=== PATIENT | female | born 1975 | race Caucasian/White ===

== ENCOUNTER 2020-04-06 18:13 | Inpatient (IN) ==
[2020-04-06 22:04] LABS: Hematocrit 37 % (35-47); Hemoglobin 11.3 g/dL (12.0-16.0); Mean Corpuscular HGB Conc 31 g/dL (31-36); Mean Corpuscular Hemoglobin 20 pg (27-31); Mean Corpuscular Volume 65 fL (80-97); Mean Platelet Volume 8.2 fL (7.4-10.4); Platelet Count 498 10^3/uL (150-450); Red Blood Count 5.65 10^6 /uL (3.70-4.87); Red Cell Distribution Width 18 % (10-15); White Blood Count 14.3 10^3/uL (3.5-10.8)
[2020-04-06 22:05] LABS: Urine Appearance Cloudy; Urine Bilirubin Negative (Negative); Urine Blood Negative (Negative); Urine Color Amber; Urine Glucose Negative (Negative); Urine Ketones 1+ (Negative); Urine Nitrite Negative (Negative); Urine Protein 1+(30 mg/dL) (Negative); Urine Specific Gravity 1.031 (1.010-1.030); Urine Urobilinogen Negative (Negative)
[2020-04-06 22:07] LABS: Urine Bacteria 1+ (Absent); Urine Red Blood Cell 2+(6-10/hpf) (Absent); Urine Squamous Epithelial Cell Present (Absent); Urine White Blood Cell Trace(0-5/hpf) (Absent)
[2020-04-06 22:14] LABS: ALT 24 U/L (7-52); Albumin 4.3 g/dL (3.2-5.2); Albumin/Globulin Ratio 1.3 (1-3); Alkaline Phosphatase 120 U/L (34-104); BUN/Creatinine Ratio 11.8 (8-20); Blood Urea Nitrogen 9 mg/dL (6-24); C Reactive Protein 42.79 mg/L (<8.01); CO2 Carbon Dioxide 21 mmol/L (22-32); Calcium 9.4 mg/dL (8.6-10.3); Chloride 106 mmol/L (101-111); EGFR Non-African American 83.5 (>60); Globulin 3.2 g/dL (2-4); Glucose 78 mg/dL (70-100); Lipase 13 U/L (11.0-82.0); Sodium 139 mmol/L (135-145); Total Protein 7.5 g/dL (6.4-8.9)
[2020-04-06 22:16] LABS: Anion Gap 12 mmol/L (2-11)
[2020-04-06 22:20] LABS: HCG Pregnancy < 0.60 mIU/mL
[2020-04-06 22:27] LABS: Microcytosis 1+
[2020-04-06 22:28] LABS: ABS Basophils 0.1 10^3/ul (0-0.2); ABS Eosinophils 0.2 10^3/ul (0-0.6); ABS Lymphocytes 2.8 10^3/ul (1.0-4.8); ABS Monocytes 0.8 10^3/ul (0-0.8); ABS Neutrophils 10.4 10^3/ul (1.5-7.7); Eosinophil % 1.2 %; Lymphocyte % 19.8 %
[2020-04-06] MEDS ORDERED: NS 0.9% 1000 ml BAG 1,000 ML IV SCH (22:45)
[2020-04-06] MEDS ORDERED: Piperacillin/Tazobac ADVAN 3.375 GM in NS 0.9% 100 ml BAG 100 ML IV ONE (22:50)
[2020-04-06] MEDS ORDERED: Ondansetron 4 mg VIAL 2 MG/ML 2 ml VIAL IV PRN (22:50)
[2020-04-06] MEDS ORDERED: HYDROmorphone 1 MG/1 ML SYRINGE IV SLOW PU PRN (22:53)
[2020-04-06] MEDS ORDERED: metroNIDAZOLE IV 500 MG/100ML 500 MG/100 ML BAG IVPB ONE (22:58)
[2020-04-06] MEDS ORDERED: Ciprofloxacin 400mg IVPREMIX 400 MG/200 ML BAG IVPB ONE (22:58)
[2020-04-06] MEDS ORDERED: ETH ESTRADIOL VAGINAL SCH (23:00)
[2020-04-06] MEDS ORDERED: ETONOGESTREL VAGINAL SCH (23:00)
[2020-04-06] MEDS ORDERED: Zosyn per Pharmacy NOTE FOLLOW UP SCH (23:00)
[2020-04-06 23:31] LABS: Potassium Redraw 3.2 mmol/L (3.5-5.0)
[2020-04-06] MEDS ORDERED: Potassium Chloride LIQUID 20 MEQ/15 ML LIQUID PO ONE (23:40)
[2020-04-06] MEDS ORDERED: Potassium Chlor 10 meq TAB PO ONE (23:50)
[2020-04-07] MEDS ORDERED: Potassium Chloride LIQUID 20 MEQ/15 ML LIQUID PO ONE (02:00)
[2020-04-07] MEDS: Heparin 5000 UNITS/ML 1 mL VIAL SUBCUT SCH ×2 (02:38→05:24)
[2020-04-07] MEDS ORDERED: ZOSYN 3.375 GM Q8H per EXTENDED INFUSION IV SCH (04:00)
[2020-04-07 06:13] LABS: ABS Basophils 0.1 10^3/ul (0-0.2); ABS Eosinophils 0.3 10^3/ul (0-0.6); ABS Lymphocytes 2.4 10^3/ul (1.0-4.8); ABS Monocytes 0.8 10^3/ul (0-0.8); ABS Neutrophils 5.8 10^3/ul (1.5-7.7); Eosinophil % 3.2 %; Hematocrit 31 % (35-47); Hemoglobin 9.6 g/dL (12.0-16.0); Lymphocyte % 25.6 %; Mean Corpuscular HGB Conc 31 g/dL (31-36); Mean Corpuscular Hemoglobin 20 pg (27-31); Mean Corpuscular Volume 65 fL (80-97); Mean Platelet Volume 7.9 fL (7.4-10.4); Platelet Count 438 10^3/uL (150-450); Red Blood Count 4.78 10^6 /uL (3.70-4.87); Red Cell Distribution Width 18 % (10-15); White Blood Count 9.3 10^3/uL (3.5-10.8)
[2020-04-07 06:31] LABS: Albumin 3.3 g/dL (3.2-5.2); Albumin/Globulin Ratio 1.3 (1-3); BUN/Creatinine Ratio 13.2 (8-20); Calcium 8.2 mg/dL (8.6-10.3); EGFR Non-African American 83.5 (>60); Globulin 2.5 g/dL (2-4); Potassium 3.6 mmol/L (3.5-5.0); Total Bilirubin 0.4 mg/dL (0.2-1.0); Total Protein 5.8 g/dL (6.4-8.9)
[2020-04-07] MEDS ORDERED: Bupivacaine 0.25% SDV 30 ML ONE (08:50)
[2020-04-07] MEDS ORDERED: Famotidine IV 10 MG/ML 2 ml VIAL (20 mg) IV SLOW PU SCH (09:00)
[2020-04-07] MEDS ORDERED: oxyCODONE/Acetamin 5/325 mg TAB PO PRN (11:55)
[2020-04-07] MEDS ORDERED: Naloxone 0.4 mg VIAL 0.4 mg/ml 1 ml VIAL IV PRN (11:55)
[2020-04-07] MEDS ORDERED: DiMENhydriNATE IV 50 mg/ml 1 ml VIAL IV PUSH PRN (11:55)
[2020-04-07] MEDS ORDERED: Ondansetron 4 mg VIAL 2 MG/ML 2 ml VIAL IV PRN (11:55)
[2020-04-07] MEDS ORDERED: fentaNYL 100 mcg/2 ml 50 MCG/ML VIAL ONE ×2 (12:06→12:42)
[2020-04-07] MEDS: fentaNYL 100 mcg/2 ml 50 MCG/ML VIAL IV PRN ×4 (12:07→13:18)
[2020-04-07] MEDS ORDERED: DiMENhydriNATE IV 50 mg/ml 1 ml VIAL ONE (12:28)
[2020-04-07] MEDS ORDERED: oxyCODONE/Acetamin 5/325 mg TAB ONE (12:42)
[2020-04-07] MEDS ORDERED: Ondansetron 4 mg VIAL 2 MG/ML 2 ml VIAL ONE (13:54)
[2020-04-07 13:59] VITALS: BP 129/89
== END 2020-04-07 15:00 | disposition home or self-care (01) | DRG 263 ==
LOC: ED 18:13 → SSU 22:40
PROVIDERS: ADMIT Internal Medicine; ATTEND Surgery

== ENCOUNTER 2021-08-09 08:46 | Inpatient (IN) ==
[2021-08-09 09:10] LABS: Hematocrit 35 % (35-47); Hemoglobin 10.7 g/dL (12.0-16.0); Mean Corpuscular HGB Conc 30 g/dL (31-36); Mean Corpuscular Hemoglobin 21 pg (27-31); Mean Corpuscular Volume 71 fL (80-97); Mean Platelet Volume 7.6 fL (7.4-10.4); Platelet Count 506 10^3/uL (150-450); Red Cell Distribution Width 18 % (10-15)
[2021-08-09 09:17] LABS: INR 1.04 (0.86-1.15)
[2021-08-09 09:25] LABS: ABS Basophils 0.1 10^3/ul (0-0.2); ABS Eosinophils 0.4 10^3/ul (0-0.6); ABS Lymphocytes 1.9 10^3/ul (1.0-4.8); ABS Monocytes 0.6 10^3/ul (0-0.8); Eosinophil % 4.1 %; Lymphocyte % 19.2 %; Nucleated Red Blood Cells % 0.1
[2021-08-09 09:31] LABS: High Sens Troponin Baseline 13 pg/mL (<15)
[2021-08-09 10:02] LABS: ALT 21 U/L (7-52); AST 17 U/L (13-39); Albumin 4.1 g/dL (3.2-5.2); Albumin/Globulin Ratio 1.6 (1-3); Alkaline Phosphatase 93 U/L (35-149); Anion Gap 9 mmol/L (2-11); Blood Urea Nitrogen 12 mg/dL (6-24); CO2 Carbon Dioxide 23 mmol/L (22-32); Calcium 9.4 mg/dL (8.6-10.3); Chloride 105 mmol/L (101-111); Globulin 2.5 g/dL (2-4); Glucose 92 mg/dL (70-100); Potassium 4.1 mmol/L (3.5-5.0); Sodium 137 mmol/L (135-145); Total Protein 6.6 g/dL (6.4-8.9); eGFR CKD-EPI 86.6 (>60)
[2021-08-09] MEDS ORDERED: Iohexol 350 (CONTRAST) 500 ML MDV IV ONE (10:08)
[2021-08-09 10:37] LABS: High Sensitivity Troponin 1 Hr 15 pg/mL (<15)
[2021-08-09 12:03] LABS: C Reactive Protein 39.49 mg/L (<8.01)
[2021-08-09] MEDS ORDERED: Perflutren Lipid Microsphere 3 ML VIAL ONE (15:04)
[2021-08-09] MEDS ORDERED: Furosemide 20 mg/2 ml IV VIAL IV SLOW PU ONE (17:21)
[2021-08-09 20:23] LABS: Total Iron Binding Capacity 671 mcg/dL (250-450); Transferrin 479 mg/dL (203-362)
[2021-08-09 20:44] LABS: Ferritin 4.2 ng/mL (11-307)
[2021-08-09 20:49] LABS: Vitamin B12 943 pg/mL (180-914)
[2021-08-09 21:08] LABS: % Iron Saturation 3 % (15-55); Iron < 20 ug/dL (50-212); Unsaturated Iron Binding 651 ug/dL
[2021-08-09] MEDS: Enoxaparin 40 MG/0.4 ML SYR SUBCUT SCH (21:27)
[2021-08-10 06:46] LABS: Magnesium 1.9 mg/dL (1.9-2.7)
[2021-08-10 06:58] LABS: TSH Ultra Thyroid Stim Horm 2.49 mcIU/mL (0.34-5.60)
[2021-08-10] MEDS ORDERED: Lorazepam PYXIS KEY PRN (08:59)
[2021-08-10] MEDS: LORazepam 2 mg VIAL 1 ml IV PUSH PRN ×2 (09:29→19:54)
[2021-08-10 10:04] LABS: HCG Pregnancy < 0.60 mIU/mL
[2021-08-10] MEDS ORDERED: fentaNYL 100 mcg/2 ml 50 MCG/ML VIAL ONE (11:34)
[2021-08-10] MEDS ORDERED: Heparin 1,000 UNIT/ML 10 ml (10,000 UNITS) CATHLAB/DIALYSIS ONE (11:34)
[2021-08-10] MEDS ORDERED: VERAPAMIL 2.5 MG/ML 2 ML VIAL ** 5 mg/2 ml ONE (11:34)
[2021-08-10] MEDS ORDERED: Midazolam 5 mg/5 ml VIAL 1 mg/ml 5 ml VIAL (5 mg) ONE (11:34)
[2021-08-10 11:35] LABS: HIV 4th Generation Nonreactive (Nonreactive)
[2021-08-10] MEDS ORDERED: Lidocaine 1% MPF 5 ML VIAL ONE (11:35)
[2021-08-10] MEDS ORDERED: Heparin 2 UNITS/ML 1000 mls 2,000 ML IV ONE (11:35)
[2021-08-10] MEDS ORDERED: nitroGLYCERIN DRIP 25,000 MCG/250 ML BTL ONE (11:35)
[2021-08-10] MEDS ORDERED: Iohexol 350 (CONTRAST) 50 ML SDV IV ONE (11:36)
[2021-08-10] MEDS ORDERED: NS 0.9% 1000 ml BAG 1,000 ML IV SCH (12:30)
[2021-08-10] MEDS ORDERED: Phenylephrine 40 mcg/mL 10mL (400mcg) SYRINGE ONE (12:54)
[2021-08-10] MEDS: Iron Sucrose 200 MG in NS 0.9% 100 ml BAG 100 ML IVPB SCH (15:15)
[2021-08-10] MEDS ORDERED: Ondansetron 4 mg VIAL 2 MG/ML 2 ml VIAL IV ONE (19:47)
[2021-08-10] MEDS ORDERED: Ondansetron 4 mg VIAL 2 MG/ML 2 ml VIAL IV PRN (19:47)
[2021-08-10] MEDS ORDERED: Al Hydrox/Mg Hydrox/Simet LIQ 30 ML UDC PO ONE (20:25)
[2021-08-10] MEDS ORDERED: Morphine 2 MG/ML SYRINGE IV ONE (20:25)
[2021-08-10] MEDS ORDERED: Pantoprazole VIAL 40 MG VIAL IV ONE (20:26)
[2021-08-10] MEDS ORDERED: Nitro 2% OINT (Nitroglycerin) 1 INCH/PAK TOPICAL ONE (21:05)
[2021-08-10] MEDS ORDERED: Morphine ORAL.SOLN 10 mg 2 mg/ml UDC 5 ml (10 mg) PO ONE ×2 (21:52→23:28)
[2021-08-10 22:40] LABS: CO2 Carbon Dioxide 18 mmol/L (22-32); Calcium 8.8 mg/dL (8.6-10.3); Chloride 110 mmol/L (101-111); Sodium 141 mmol/L (135-145)
[2021-08-10 22:45] LABS: Blood Urea Nitrogen 12 mg/dL (6-24); Glucose 124 mg/dL (70-100); eGFR CKD-EPI 83.1 (>60)
[2021-08-10 23:00] LABS: Anion Gap 13 mmol/L (2-11)
[2021-08-10] MEDS: Enoxaparin 40 MG/0.4 ML SYR SUBCUT SCH (23:05)
[2021-08-10 23:58] LABS: Magnesium 2.2 mg/dL (1.9-2.7); Potassium Redraw 4.1 mmol/L (3.5-5.0)
[2021-08-11 05:51] LABS: Hematocrit 37 % (35-47); Hemoglobin 11.4 g/dL (12.0-16.0); Mean Corpuscular HGB Conc 31 g/dL (31-36); Mean Corpuscular Hemoglobin 22 pg (27-31); Mean Corpuscular Volume 70 fL (80-97); Platelet Count 480 10^3/uL (150-450); Red Blood Count 5.29 10^6 /uL (3.70-4.87); Red Cell Distribution Width 18 % (10-15); White Blood Count 15.7 10^3/uL (3.5-10.8)
[2021-08-11 06:05] LABS: Calcium 9.4 mg/dL (8.6-10.3); Potassium 4.6 mmol/L (3.5-5.0); eGFR CKD-EPI 109.3 (>60)
[2021-08-11] MEDS: Iron Sucrose 200 MG in NS 0.9% 100 ml BAG 100 ML IVPB SCH (08:54)
[2021-08-11] MEDS ORDERED: NS 0.9% 1000 ml BAG 1,000 ML IV SCH (12:30)
[2021-08-11] MEDS ORDERED: nitroGLYCERIN DRIP 25,000 MCG/250 ML BTL ONE (13:17)
[2021-08-11] MEDS ORDERED: VERAPAMIL 2.5 MG/ML 2 ML VIAL ** 5 mg/2 ml ONE (13:17)
[2021-08-11] MEDS ORDERED: fentaNYL 100 mcg/2 ml 50 MCG/ML VIAL ONE (13:17)
[2021-08-11] MEDS ORDERED: Midazolam 5 mg/5 ml VIAL 1 mg/ml 5 ml VIAL (5 mg) ONE ×2 (13:17→13:57)
[2021-08-11] MEDS ORDERED: Heparin 2 UNITS/ML 1000 mls 2,000 ML IV ONE ×2 (13:17→13:52)
[2021-08-11] MEDS ORDERED: Heparin 1,000 UNIT/ML 10 ml (10,000 UNITS) CATHLAB/DIALYSIS ONE (13:17)
[2021-08-11] MEDS ORDERED: Lidocaine 1% MPF 5 ML VIAL ONE ×5 (13:18→14:53)
[2021-08-11] MEDS ORDERED: Iohexol 350 (CONTRAST) 200 ML MDV IV ONE (13:18)
[2021-08-11] MEDS ORDERED: Milrinone 20,000 MCG/100 ML BAG IV SCH ×2 (14:00)
[2021-08-11 14:01] LABS: High Sensitivity Troponin 1 Hr > 24000 pg/mL (<15)
[2021-08-11] MEDS ORDERED: Furosemide 40 mg/4 ml IV VIAL ONE (15:06)
[2021-08-11 15:45] LABS: POC SO2 96 %
[2021-08-11 15:45] LABS: POC SO2 57 %
[2021-08-11] MEDS ORDERED: Milrinone 20,000 MCG/100 ML BAG IV ONE (16:12)
[2021-08-12 08:37] VITALS: BP 141/50
[2021-08-14 21:09] LABS: Anaplasma phagocytophilum Negative (Negative); B. miyamotoi PCR, B Negative (Negative); Babesia divergens/MO-1 Negative (Negative); Babesia ducani Negative (Negative); Ehrlichia chaffeensis Negative (Negative); Ehrlichia ewingii/canis Negative (Negative); Ehrlichia muris eauclairensis Negative (Negative)
== END 2021-08-11 17:15 | disposition short-term general hospital (02) | DRG 192 ==
LOC: ED 08:46 → EDHOLD 17:16 → MEDTELE 22:17 → ICU 08-11 13:04
PROVIDERS: ADMIT Hospitalist; ATTEND Hospitalist